=== PATIENT | male | born 1970 | race Caucasian/White ===

== ENCOUNTER 2020-01-20 11:44 | Inpatient (IN) | payer SELFPAY ==
[2020-01-20] VITALS (7 sets, daily range): BP systolic 136–180; BP diastolic 78–103
[~2020-01-20] VITALS: Ht 170.2 cm; Wt 83.9 kg
--- NOTE | 2020-01-20 11:53 | NUR ---
[id number], from home, c/o generalized weakness and chest pain of 1/10 radiating to left shoulder since this morning. pt states c/o lower back pain of 3/10. states feeling more of pressure on the chest and feeling of dizzy and tired at this time. no n/v. no diaphoresis at this time. no sob. awaiting for MD velasquez
--- NOTE | 2020-01-20 12:05 | NUR ---
SEEN AND EVALUATED BY
--- NOTE | 2020-01-20 12:20 | NUR ---
IV LINE ESTABLISHED
--- NOTE | 2020-01-20 12:20 | NUR ---
BLOOD DRAWN AND SENT TO LAB
[2020-01-20] MEDS ORDERED: NITROGLYCERIN 0.4 MG/TAB BOTTLE ONE (12:22)
[2020-01-20] MEDS ORDERED: NITROGLYCERIN 0.4 MG/TAB BOTTLE SL ONE (12:30)
[2020-01-20 12:32] LABS: BASOPHILS # (AUTO) 0.1 /CMM (0.0-0.2); EOSINOPHILS % (AUTO) 3.3 % (0.0-6.0); HEMATOCRIT 43 % (39-51); HEMOGLOBIN 14.8 g/dL (13.5-17.5); LYMPHOCYTES # (AUTO) 1.4 /CMM (0.8-4.8); LYMPHOCYTES % (AUTO) 25.6 % (20.0-44.0); MEAN CORPUSCULAR HGB CONC 35 g/dl (31.0-36.0); MEAN CORPUSCULAR VOLUME 88 fL (80-96); MONOCYTES # (AUTO) 0.4 /CMM (0.1-1.30); MONOCYTES % (AUTO) 6.8 % (2.0-12.0); NEUTROPHILS # (AUTO) 3.4 /CMM (1.8-8.9); NEUTROPHILS % (AUTO) 63.3 % (43.0-81.0); PLATELET COUNT (AUTO) 282 /CMM (150-450); RED BLOOD CELL COUNT(AUTO) 4.86 MIL/uL (4.5-6.0); WHITE BLOOD COUNT (AUTO) 5.4 K/uL (4.3-11.0)
[2020-01-20 12:45] LABS: ALANINE AMINOTRANSFERASE 34 U/L (12-78); ALBUMIN 3.9 g/dL (3.4-5.0); ALKALINE PHOSPHATASE 95 U/L (46-116); ASPARTATE AMINOTRANSFERASE 16 U/L (15-37); BILIRUBIN,DIRECT 0.1 mg/dL (0.0-0.2); BILIRUBIN,TOTAL 0.8 mg/dL (0.2-1.0); CALCIUM, SERUM 8.9 mg/dL (8.5-10.1); CARBON DIOXIDE 25 mmol/L (21-32); CHLORIDE 102 mmol/L (98-107); CREATININE 0.8 mg/dL (0.6-1.3); GLUCOSE 127 mg/dL (74-106); POTASSIUM 3.8 mmol/L (3.5-5.1); SODIUM SERUM 137 mmol/L (136-145); TOTAL PROTEIN, SERUM 7.3 g/dL (6.4-8.2); UREA NITROGEN, BLOOD 11 mg/dL (7-18)
[2020-01-20] MEDS ORDERED: NEBI5TAB8 PO (13:27)
[2020-01-20] MEDS ORDERED: ONDANSETRON HCL/PF 4 MG/2 ML VIAL IVP PRN (13:30)
[2020-01-20] MEDS ORDERED: Z GUARD REMEDY 2 OZ OINT TP PRN (13:30)
[2020-01-20] MEDS ORDERED: MORPHINE SULFATE INJ 2 MG/ML DISP.SYRIN IV PRN (13:30)
[2020-01-20] MEDS ORDERED: ACETAMINOPHEN 325 MG TABLET PO PRN (13:30)
[2020-01-20] MEDS ORDERED: MAGNESIUM HYDROXIDE 30 ML UDC PO PRN (13:30)
[2020-01-20] MEDS ORDERED: MAG HYDROX/AL HYDROX/SIMETH 30 ML UDC PO PRN (13:30)
[2020-01-20] MEDS ORDERED: TEMAZEPAM 15 MG CAPSULE PO PRN (13:30)
[2020-01-20] MEDS ORDERED: NITROGLYCERIN 0.4 MG/TAB BOTTLE SL PRN (13:30)
--- NOTE | 2020-01-20 13:51 | NUR ---
followed up for covid antigen kit.
[2020-01-20] MEDS ORDERED: ASPIRIN 81 MG TAB.CHEW PO ONE (14:00)
[2020-01-20] MEDS ORDERED: ASPIRIN 81 MG TAB.CHEW ONE (14:02)
--- NOTE | 2020-01-20 15:55 | NUR ---
covid result=negative
--- NOTE | 2020-01-20 15:57 | NUR ---
bed [id number]=[id number]
--- NOTE | 2020-01-20 16:20 | NUR ---
report given to NATHANAEL ray RN for LYDIA
--- NOTE | 2020-01-20 16:40 | NUR ---
tele category director: admission admitted this 49 years old male pt from [facility] with dx: chest pain. awake, a/ox4, needy and sarcastic when answering. c/o headache and being hungry, stated, "i was in [facility] for almost 3 hours and they did not feed me and i had a terrible headache." informed pt that he was given nitroglycerin sl and one of the side effects is headache. pt demanded staff to correct the problem and get fed as stated. placed pt on tele=sinus joselin=53. dinner tray ordered and served. tylenol 650mg given, but pt was hesitant taking it, stating, "i know the problem, i'm hungry, i want to eat first then you can ask questions later." dr. carmichael notified and made aware with order to give hydralazine 10mg ivp q6hrs prn and lisinopril 10mg po daily. orders read back and carried out and acknowledged. instructed to call for assistance. will continue to monitor.
[2020-01-20] MEDS ORDERED: hydrALAZINE HCL IV 20 MG VIAL IV PRN (17:00)
--- NOTE | 2020-01-20 17:32 | NUR ---
tele camera mechanic: notes hydralazine 10mg ivp given by rn due to b/p 180/103. will continue to monitor. instructed to call for assistance. will monitor.
--- NOTE | 2020-01-20 18:05 | NUR ---
tele rd mechanical engineer: notes tele remains sinus joselin=55. consent obtained for nm treadmill stress test. needs attended. no distress noted. instructed to call for assistance. will continue to monitor. Addendum: 01/20/20 at 1914 by JEFRY MAYNARD TRANSPORTATION MUSEUM HELPER pt aware that he cannot eat and drink after midnight due to nm stress test tomorrow.
--- NOTE | 2020-01-20 18:10 | NUR ---
tele seismic prospecting observer: notes pt feels better. re check b/p 153/78. remains sinus joselin=54. instructed to call for assistance. will continue to monitor.
--- NOTE | 2020-01-20 19:00 | NUR ---
tele fiber optics technician: notes report given to nikhil Peguerorn) for continuity of care.
[2020-01-20] MEDS: HYDROCODONE/APAP 5/325MG TABLET PO PRN (19:29)
--- NOTE | 2020-01-20 19:47 | NUR ---
TELE/RN OPENING NOTE Patient awake in bed, A/O x4, ambulatory. Breath sounds symmetrical clear, unlabored, on room air. No JVD. No tracheal deviation. No acute distress or SOB. Skin warm, pink, dry appropriate for ethnicity. Birthmark noted on left forearm. IV site RAC 18g, patent and intact, saline locked. No signs of redness. Abdomen round, soft, non-tender. BS active. Patient void via BRP. Urine clear, yellow, without difficulty. Patient is NPO midnight for treadmill nuclear stress test. Consent signed. Bed in low position, wheels locked, side rails up x2, call light within reach.
--- NOTE | 2020-01-20 20:37 | NUR ---
TELE/RN NOTE Patient c/o pain level 7, headache. Throbbing and aching. Administered PRN norco as ordered. BP 158/94 P58. Will continue to monitor.
[2020-01-21 04:27] VITALS: BP 134/82
[2020-01-21] MEDS: HYDROCODONE/APAP 5/325MG TABLET PO PRN ×2 (04:32→11:49)
[2020-01-21 04:35] VITALS: BP 134/82
--- NOTE | 2020-01-21 05:38 | NUR ---
TELE/RN NOTE Patient refused lab drawn, per Rachana net developer architect. Patient states he has a headache and does not want to be bothered. Will continue to monitor.
--- NOTE | 2020-01-21 06:05 | NUR ---
TELE/RN CLOSING NOTE Patient awake in bed, A/O x4, ambulatory. Breath sounds symmetrical clear, unlabored, on room air. Birthmark noted on left forearm. IV site RAC 18g, patent and intact, saline locked. No signs of redness. Patient void via BRP, x2. Urine clear, yellow, without difficulty. Patient is NPO midnight for treadmill nuclear stress test. Consent signed. Bed in low position, wheels locked, side rails up x2, call light within reach.
--- NOTE | 2020-01-21 07:34 | NUR ---
PLANOGRAPH OPERATOR OPENING SHIFT NOTES RECEIVED PATIENT RESTING IN BED, A/O X4, ON RA WITH EVEN UNLABORED BREATHS, NO ACUTE RESPIRATORY DISTRESS NOTED, NO SOB, NO C/O PAIN, ON TELE MONITOR READING SINUS ADE WITH HR RANGING AROUND 60'S BPM. IV TO RAC 18G, PATENT AND INTACT AND SALINE LOCKED. NO REDNESS, SWELLING OR SINGS OF INFILTRATION NOTED. SKIN INTACT, WITH BIRTHMARK TO LT ARM NOTED. PATIENT IS AMBULATORY WITH BRP. PT IS NPO PENDING TRDML NUCLEAR STRESS TEST TODAY. BED IS AT LOWEST POSITION SIDE RAILS UPX2 AND LOCKED, CALL LIGHT WITHIN REACH. WILL CONTINUE TO MONITOR PATIENT THROUGH OUT SHIFT. ALL SAFETY MEASURE IN PLACE
[2020-01-21] MEDS: ASPIRIN 81 MG TAB.CHEW PO SCH ×2 (08:06→11:43)
[2020-01-21] MEDS: LISINOPRIL (10MG) 10 MG TABLET PO SCH ×2 (08:06→11:43)
[2020-01-21 09:39] LABS: BASOPHILS % (AUTO) 0.7 % (0.0-2.0); EOSINOPHILS % (AUTO) 2.7 % (0.0-6.0); HEMATOCRIT 44 % (39-51); LYMPHOCYTES # (AUTO) 1.6 /CMM (0.8-4.8); LYMPHOCYTES % (AUTO) 22.3 % (20.0-44.0); MEAN CORPUSCULAR HGB CONC 34 g/dl (31.0-36.0); MEAN CORPUSCULAR VOLUME 88 fL (80-96); MONOCYTES # (AUTO) 0.5 /CMM (0.1-1.30); MONOCYTES % (AUTO) 6.6 % (2.0-12.0); NEUTROPHILS # (AUTO) 4.9 /CMM (1.8-8.9); NEUTROPHILS % (AUTO) 67.7 % (43.0-81.0); PLATELET COUNT (AUTO) 283 /CMM (150-450); RED BLOOD CELL COUNT(AUTO) 5.02 MIL/uL (4.5-6.0); WHITE BLOOD COUNT (AUTO) 7.3 K/uL (4.3-11.0)
--- NOTE | 2020-01-21 09:45 | NUR ---
ONCOLOGY NAVIGATOR NOTES PT TRANSPORTED FOR STRESS TEST VIA W/C IN STABLE CONDITION. PT CURRENTLY NPO, IV LINE TO LT ARM PATENT AND INTACT.
[2020-01-21 10:01] LABS: CALCIUM, SERUM 8.8 mg/dL (8.5-10.1); CREATININE 0.8 mg/dL (0.6-1.3); MAGNESIUM 2.5 mg/dL (1.8-2.4); PHOSPHORUS 3.7 mg/dL (2.5-4.9); POTASSIUM 4.1 mmol/L (3.5-5.1)
[2020-01-21 10:12] LABS: THYROID STIMULATING HORMONE 1.957 uIU/mL (0.358-3.74)
[2020-01-21 11:10] VITALS: BP 131/92
--- NOTE | 2020-01-21 11:10 | NUR ---
COPYRIGHT EXPERT NOTES PT RETURNED FROM PROCEDURE STRESS TEST IN STABLE CONDITION. AMBULATORY, A/OX4, VITALS TAKEN AND DOCUMENTED, PT C/O JOHNSON 07/18, NORCO GIVEN. ALL MEDICATIONS GIVEN, FOOD GIVEN, PATIENT NO LONGER ON NPO STATUS. WILL CONTINUE TO MONITOR PATIENT
[2020-01-21 11:45] VITALS: BP 131/86
--- NOTE | 2020-01-21 12:15 | NUR ---
SOCIOLOGY TEACHER NOTES PATIENT TAKEN FOR 2ND PART OF STRESS TEST IN STABLE CONDITION, IV RAC #18G INTACT AND PATENT.
[2020-01-21] MEDS ORDERED: ASPI-1169 PO (15:16)
[2020-01-21] MEDS ORDERED: LISI10TA5 PO (15:16)
[2020-01-21] MEDS ORDERED: SIMV-49 PO (15:16)
--- NOTE | 2020-01-21 15:36 | NUR ---
CONTRACT ADMINGRINDER AND PLATER NOTE RECEIVED DISCHARGE ORDER FOR DISCHARGE FROM , PT OK TO D/C HOME, F/U WITH PMD IN 1 WK. PER CARDIOLOGY STANDPOINT - DR. SILVERMAN PATIENT IS OK TO D/C HOME IF NM STRESS TEST IS NEGATIVE, PT OK TO D/C HOME, MEDICATION, DISCHARGE INSTRUCTIONS AND EDUCATION PROVIDED TO PT. INSTRUCTED PT TO F/U WITH PMD IN 1 WK AND CONTINUE ON MEDS ORDRED. PT VERBALIZED UNDERSTANDING. BELONGINGS CHECKED, SKIN CHECKED AND INTACT, ROBERT TO LT FOREARM AREA. PT FAMILY TO WARP COILER PATIENT. PT IS IN STABLE CONDITION TO RETURN HOME
[2020-01-21 16:00] VITALS: BP 132/79
--- NOTE | 2020-01-21 17:10 | NUR ---
WHEEL GRINDERWOOD TREATING INSPECTOR NOTE PATIENT DISCHARGED HOME IN STABLE CONDITION, PATIENT TAKEN VIA WHEELCHAIR TO [facility] WHERE FAMILY WAS WAITING FOR HIM. PATIENT D/C HOME VIA PRIVATE CAR ACCOMPANIED BY MOTHER AND SISTER. IV TO LT ARM D/C, SKIN INTACT, MEDICATION LIST, DISCHARGE AND EDUCATION DOCUMENTS GIVEN TO PATIENT. BELONGING WITH PATIENT. PT UNDERSTANDS TO F/U WITH PMD IN 1 WEEK AND RETURN TO ED IF WORSENING SYMPTOMS, PT VERBALIZED UNDERSTANDING.
== END 2020-01-21 17:30 | disposition home or self-care (01) | DRG 206 ==
LOC: ER 11:52 → TELE 15:59
PROVIDERS: ADMIT Nurse Practitioner Acute Care; ATTEND Student in an Organized Health Care Education/Training Program
DX: M94.0 Chondrocostal junction syndrome [Tietze] (principal); R73.9 Hyperglycemia, unspecified; E66.9 Obesity, unspecified; Z68.29 Body mass index [BMI] 29.0-29.9, adult; I10 Essential (primary) hypertension; Z79.899 Other long term (current) drug therapy; E78.00 Pure hypercholesterolemia, unspecified; Z82.49 Family history of ischemic heart disease and other diseases of the circulatory system; F17.210 Nicotine dependence, cigarettes, uncomplicated; E78.5 Hyperlipidemia, unspecified
CPT/HCPCS: 36415; 71045-TC; 80048-TC; 80061-TC; 80076-TC; 83735-TC; 84100-TC; 84443-TC; 84484-TC; 85025-TC; 85378-TC; 87081-TC; 93307-TC; A9502; C9803-CS; G0378; J0360

== ENCOUNTER 2020-12-05 18:24 | Emergency (ER) | payer SELFPAY ==
[~2020-12-05] VITALS: Ht 177.8 cm; Wt 81.6 kg
[~2020-12-05 18:24] MED LIST: ASPI-1169 PO; LISI10TA29 PO; SIMV-49 PO
--- NOTE | 2020-12-05 18:46 | NUR ---
SUDDEN ONSET OF RIGHT FLANK PAIN X 1 1/2 HR, H/O KIDNEY STONE. PATIENT A/OX4, BREATHING EVEN AND UNLABORED, NO SOB NOTED, NEEDS ATTENDED. KEPT COMFORTABLE.
[2020-12-05] MEDS ORDERED: ONDANSETRON HCL/PF 4 MG/2 ML VIAL IVP ONE ×2 (19:00→19:30)
[2020-12-05] MEDS ORDERED: MORPHINE SULFATE INJ 2 MG/ML DISP.SYRIN IV ONE ×2 (19:00→19:30)
[2020-12-05] MEDS ORDERED: IV NS 0.9% 1,000 ML BAG IV ONE ×2 (19:00→19:30)
[2020-12-05] MEDS ORDERED: ONDANSETRON HCL/PF 4 MG/2 ML VIAL ONE (19:01)
[2020-12-05] MEDS ORDERED: MORPHINE SULFATE INJ 4 MG/ML DISP.SYRIN ONE (19:01)
--- NOTE | 2020-12-05 19:05 | NUR ---
IV LINE ESTABLISHED.
--- NOTE | 2020-12-05 19:19 | NUR ---
URINE SENTT O LAB.
[2020-12-05 20:13] LABS: BILIRUBIN,URINE NEGATIVE (NEGATIVE); COLOR,URINE YELLOW (YELLOW); LEUKOCYTE ESTERASE ,URINE NEGATIVE (NEGATIVE); NITRITE, URINE NEGATIVE (NEGATIVE); PROTEIN,URINE NEGATIVE (NEGATIVE); UGLUCOSE NEGATIVE (NEGATIVE); UROBILINOGEN,URINE 0.2 EU/dL (0.2)
[2020-12-05 20:16] LABS: ALBUMIN 4.4 g/dL (3.4-5.0); BILIRUBIN,DIRECT 0.2 mg/dL (0.0-0.2); BILIRUBIN,TOTAL 0.7 mg/dL (0.2-1.0); CALCIUM, SERUM 9.3 mg/dL (8.5-10.1); CREATININE 1.4 mg/dL (0.6-1.3); POTASSIUM 4.4 mmol/L (3.5-5.1); TOTAL PROTEIN, SERUM 7.4 g/dL (6.4-8.2)
[2020-12-05 20:23] LABS: BACTERIA,URINE Rare /HPF (None Seen); SQUAMOUS EPITHELIAL CELL,UR Few /HPF (None Seen); WBC,URINE 0-2 /HPF (0-3)
[2020-12-05 20:48] LABS: BASOPHILS % (AUTO) 0.5 % (0.0-2.0); EOSINOPHILS % (AUTO) 2.7 % (0.0-6.0); HEMATOCRIT 39 % (39-51); HEMOGLOBIN 13.6 g/dL (13.5-17.5); LYMPHOCYTES # (AUTO) 1.8 K/uL (0.8-4.8); LYMPHOCYTES % (AUTO) 19.5 % (20.0-44.0); MEAN CORPUSCULAR HGB CONC 35 g/dl (31.0-36.0); MEAN CORPUSCULAR VOLUME 88 fL (80-96); MONOCYTES # (AUTO) 0.6 K/uL (0.1-1.30); MONOCYTES % (AUTO) 6.7 % (2.0-12.0); NEUTROPHILS # (AUTO) 6.6 K/uL (1.8-8.9); NEUTROPHILS % (AUTO) 70.6 % (43.0-81.0); PLATELET COUNT (AUTO) 291 K/uL (150-450); WHITE BLOOD COUNT (AUTO) 9.3 K/uL (4.3-11.0)
[2020-12-05] MEDS ORDERED: ACET-2605 PO (21:21)
[2020-12-05] MEDS ORDERED: HYDR-4303 PO (21:21)
[2020-12-05] MEDS ORDERED: TAMS-12 PO (21:21)
--- NOTE | 2020-12-05 21:53 | NUR ---
pt discharged. dischage instructions given, CD given. IV to right hand removed. No further questions asked pt left ambulating
[2020-12-05 21:57] VITALS: BP 135/90
== END 2020-12-05 22:00 | disposition home or self-care (01) ==
LOC: ER 18:33
DX: N23 Unspecified renal colic (principal); I10 Essential (primary) hypertension; Z79.899 Other long term (current) drug therapy; Z79.82 Long term (current) use of aspirin
CPT/HCPCS: 36415; 74176; 80048; 80076; 81001; 83690; 85025; 87086; 96361; 96374; 96375; 99284; J2270; J2405; J7030